=== PATIENT | female | born 1955 | race Caucasian/White ===

== ENCOUNTER 2023-09-29 13:30 | Emergency (ER) | payer MEDICARE, SELFPAY ==
[2023-09-29] VITALS (13 sets, daily range): BP systolic 146–176; BP diastolic 77–94; PULSE 67–82; RESP 15–20; TEMP 36.2–36.4; O2SAT 99–100
--- NOTE | ~2023-09-29 | CT_ITS ---
EXAMINATION: CT cervical spine wo con DATE: 09/29/2023 14:20 INDICATION: Head injury. TECHNIQUE: Computed tomography (CT) of the cervical spine was performed without intravenous contrast. Automated exposure control and iterative reconstruction technique were employed. The dose-length pro duct was 287.37 mGy-cm. COMPARISON: None FINDINGS: There is hypolordosis of cervical spine. There is 2 mm retrolisthesis of C5 on C6. Vertebra l body heights are normal. There is severely decreased disc height at C5-C6. The following disc level s are specifically discussed: C2-C3: There is no uncovertebral joint osteoarthritis. There is mild right and moderate left facet chel int osteoarthritis. There is no neural foraminal stenosis. There is no central canal stenosis. C3-C4: There is mild bilateral uncovertebral joint osteoarthritis. There is moderate right and severe left facet joint osteoarthritis. There is mild left neural foraminal stenosis. There is no central c anal stenosis. C4-C5: There is no uncovertebral joint osteoarthritis. There is severe right and moderate left facet joint osteoarthritis. There is no neural foraminal stenosis. There is no central canal stenosis. C5-C6: There is severe bilateral uncovertebral joint osteoarthritis. There is moderate bilateral face t joint osteoarthritis. There is moderate and mild left neural foraminal stenosis. There is mild cent ral canal stenosis. C6-C7: There is no uncovertebral joint osteoarthritis. There is mild bilateral facet joint osteoarthr itis. There is no neural foraminal stenosis. There is no central canal stenosis. C7-T1: There is no uncovertebral joint osteoarthritis. There is severe right and moderate left facet joint osteoarthritis. There is mild bilateral neural foraminal stenosis. There is no central canal st enosis. IMPRESSION: 1. No fracture. 2. Severe spondylosis at C5-C6 and mild spondylosis at other levels. Reviewed, dictated and finalized at location E.
--- NOTE | ~2023-09-29 | CT_ITS ---
EXAMINATION: CT brain wo con DATE: 09/29/2023 14:20 INDICATION: Head injury. Fall. TECHNIQUE: Computed tomography (CT) of the head was performed without intravenous contrast. The mA wa s adjusted according to patient size. Iterative reconstruction technique was employed. The dose-lengt h product was 605.33 mGy-cm. COMPARISON: None FINDINGS: There is no intracranial hemorrhage, acute infarction, or abnormal intracranial mass lesion . The ventricles are normal in size. There are likely changes of ocular lens replacement surgeries. T here is right posterior scalp soft tissue swelling. There is mucosal thickening in the paranasal sinu ses. The mastoid air cells are normal. IMPRESSION: 1. Normal brain. Reviewed, dictated and finalized at location E. IMPRESSION: 1. Normal brain.
--- NOTE | 2023-09-29 13:31 | ED.FALL ---
HPI - Fall General Chief Complaint: Fall Stated Complaint: fall Time Seen by Provider: 09/29/23 13:31 Source: patient and family Mode of arrival: ambulatory Limitations: no limitations History of Present Illness HPI Narrative: Patient is 68 years old white female came to the emergency room from home with her because of a fall. Patient tripped on her dog gate fell backward struck the back of her head on the floor, no loss of consciousness, complaining of swelling at the back of her head. She denies any other injuries. Patient is on aspirin, denied any type coagulant medications. Related Data Allergies Allergy/AdvReac Type Severity Reaction Status Date / Time No Known Allergies Allergy Verified 09/29/23 13:57 Review of Systems Review of Systems: All systems reviewed & are unremarkable except as noted in HPI and below Exam Narrative: General appearance: Well-developed, well-nourished Skin: Normal color Head: Occipital hematoma 5 x 5 cm, tender, no laceration Eyes: Clear conjunctiva ENT: Oropharynx normal, ears normal, nose normal Neck: Supple, nontender Chest and respiratory: Airway patent, no respiratory distress, no accessory muscle use Heart: Regular rate/rhythm Vascular: Normal peripheral pulses, normal capillary refill. 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, no gross motor deficit Course Vital Signs Vital signs: Vital Signs Temperature 36.2 C L 09/29/23 13:41 Pulse Rate 69 09/29/23 13:41 Respiratory Rate 15 09/29/23 13:41 Blood Pressure 171/94 H 09/29/23 13:41 Pulse Oximetry 100 09/29/23 13:41 Temperature 36.4 C 09/29/23 13:49 Pulse Rate 67 09/29/23 13:49 Respiratory Rate 20 09/29/23 13:49 Blood Pressure 176/77 H 09/29/23 13:49 Pulse Oximetry 100 09/29/23 13:49 Oxygen Delivery Room Air 09/29/23 13:49 MDM - Fall MDM Narrative Medical decision making narrative: Differential diagnosis contusion, hematoma, skull fracture, intracranial bleed CT head and CT cervical spine showed no acute abnormalities. Discharged on Tylenol. Differential Diagnosis Differential diagnosis: Likely other (As above) Imaging Data Radiologist's impression: Impressions Head CT 09/29/23 14:26 IMPRESSION: 1. Normal brain. Cervical Spine CT 09/29/23 14:27 IMPRESSION: 1. No fracture. 2. Severe spondylosis at C5-C6 and mild spondylosis at other levels. Critical Care Time Critical Care Time Critical Care Time: No Discharge Plan Discharge Clinical Impression: CHI (closed head injury), Concussion without loss of consciousness Patient Disposition: Home, Self-Care Condition: Stable Instructions: Head Injury (ED), Contusion in Adults (ED) Additional Instructions: Return if symptoms are worsening , call your family physician for appointment, take Tylenol as as needed for aches and pain, continue home medications. Follow-up/Referrals: PHYSICIAN NOT ON STAFF,NONSTAFF [Non-Staff] - Vincenzo Varela MD [Physician] - 10/03/23
[2023-09-29] MEDS: ACETAMINOPHEN 500 MG TABLET 1000 MG PO (14:02)
== END 2023-09-29 15:13 | disposition home or self-care (01) ==
PROVIDERS: Emergency Provider Emergency Medicine; PCP Family Medicine
DX: S06.0X0A Concussion without loss of consciousness, initial encounter (principal); M47.812 Spondylosis without myelopathy or radiculopathy, cervical region; W18.09XA Striking against other object with subsequent fall, initial encounter
CPT/HCPCS: 70450; 72125; 99284; A9270

== ENCOUNTER 2024-10-08 19:00 | Emergency (ER) | payer MEDICARE, SELFPAY ==
--- NOTE | ~2024-10-08 | XR_ITS ---
HISTORY: post reduction COMPARISON: 10/08/2024 approximately 2 hours earlier and additional imaging performed approximately 30 minutes earlier. TECHNIQUE: 2 views of the left wrist were performed. FINDINGS: Near anatomic alignment is redemonstrated identified on AP view with continued (but improved) dorsal displacement on crosstable lateral. IMPRESSION: As above. Reviewed, dictated and finalized at location A. IMPRESSION: As above.
--- NOTE | ~2024-10-08 | XR_ITS ---
HISTORY: L arm injury COMPARISON: None TECHNIQUE: 2 views of the left wrist were performed FINDINGS: Acute comminuted fracture of the distal radius is identified with significant radial and dorsal displ acement of the distal fracture fragments. IMPRESSION: As above. Reviewed, dictated and finalized at location A. IMPRESSION: As above.
--- NOTE | ~2024-10-08 | XR_ITS ---
HISTORY: post reduction COMPARISON: 10/08/2024 approximately 2 hours earlier TECHNIQUE: 2 views of the left wrist were performed. FINDINGS: Near anatomic alignment is identified on AP view with continued dorsal displacement on crosstable lat eral. IMPRESSION: As above. Reviewed, dictated and finalized at location A. IMPRESSION: As above.
[2024-10-08 19:01] VITALS: BP 156/91; PULSE 88; RESP 16; TEMP 36.6; O2SAT 100
--- NOTE | 2024-10-08 19:26 | ED_ITS ---
HPI - Fall General Chief Complaint: Fall <Jessica Coronado APRN - Last Filed: 10/08/24 23:56> Stated Complaint: fall-broken arm <Jessica Coronado APRN - Last Filed: 10/08/24 23:56> Time Seen by Provider: 10/08/24 19:15 <Jessica Coronado APRN - Last Filed: 10/08/24 23:56> History of Present Illness HPI Narrative: Patient is a 69-year-old female who presents to the ER with left forearm injury. She reports she was walking on her wood floor with socks on, slipped and fell. Patient endorses significant pain in her left forearm. She endorses full feeling in each of her digits, but is unable to move the much due to pain. Patient reports she has a history of diabetes, but denies any other medical history relevant to this ER visit. She denies any decreased range of motion in her elbow, shoulder, decreased sensation, recent fevers. <Jessica Coronado APRN - Last Filed: 10/08/24 23:56> Related Data Allergies/Adverse Reactions: Allergies Allergy/AdvReac Type Severity Reaction Status Date / Time No Known Allergies Allergy Verified 09/29/23 13:57 <Jessica Coronado APRN - Last Filed: 10/08/24 23:56> Review of Systems Review of Systems: All systems reviewed & are unremarkable except as noted in HPI and below <Jessica Coronado APRN - Last Filed: 10/08/24 23:56> Exam Narrative: GENERAL: Well appearing, well-nourished, non-toxic, in no acute distress. HEAD: Normocephalic, atraumatic. NECK: Supple. No adenopathy, no masses. RESPIRATORY: Airway patent, respirations nonlabored. Clear to auscultation bilaterally, no rales, rhonchi, wheezing. CARDIOVASCULAR: Regular rate and rhythm without murmurs, rubs, or gallops. Peripheral pulses 2+ and equal bilaterally. ABDOMINAL: Soft, nontender, nondistended, no hepatosplenomegaly. Normoactive BS. MUSCULOSKELETAL: Moves all extremities. Strength/ROM intact without gross deformities in all extremities except for L forearm, which is visibly deformed. Pt is able to wiggle each of her fingers but will not attempt any other ROM d/t pain. SKIN: Warm, dry, normal color. No rashes. NEURO: A&O X3. Speech clear. Cranial nerves II-XII intact. No ataxic movements. PSYCHIATRIC: Appropriate mood and affect. Normal interaction. Post Reduction: CWMS intact L hand, pt denies any numbness or tingling in her fingers. She can move all fingers. 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 I had independent [id number] time with the patient and performed my own independent evaluation and assessment. I independently performed the reduction attempts at bedside and splint of the fracture. Orthopedics was consulted and recommended surgical evaluation outpatient with pain control regimen on discharge. Patient was comfortable with this plan. She remains neurovascularly intact upon reduction and has good distal neuro vasculature at this time. Patient given return precautions and she verbalized understanding the instructions for follow-up. Patient safely discharge. <Tee Armijo MD - Last Filed: 10/08/24 23:59> Vital Signs Vital signs: Vital Signs Temperature 36.6 C 10/08/24 19:01 Pulse Rate 88 10/08/24 19:01 Respiratory Rate 16 10/08/24 19:01 Blood Pressure 156/91 H 10/08/24 19:01 Pulse Oximetry 100 10/08/24 19:01 Temperature 36.6 C 10/08/24 19:01 Pulse Rate 70 10/08/24 23:44 Respiratory Rate 18 10/08/24 23:44 Blood Pressure 143/74 H 10/08/24 23:44 Pulse Oximetry 95 10/08/24 23:44 <Jessica Coronado APRN - Last Filed: 10/08/24 23:56> Vital Signs Temperature 36.6 C 10/08/24 19:01 Pulse Rate 88 10/08/24 19:01 Respiratory Rate 16 10/08/24 19:01 Blood Pressure 156/91 H 10/08/24 19:01 Pulse Oximetry 100 10/08/24 19:01 Temperature 36.6 C 10/08/24 19:01 Pulse Rate 70 10/08/24 23:44 Respiratory Rate 18 10/08/24 23:44 Blood Pressure 143/74 H 10/08/24 23:44 Pulse Oximetry 95 10/08/24 23:44 <Tee Armijo MD - Last Filed: 10/08/24 23:59> Procedures Orthopedic Fracture Reduction Fracture #1: Fracture Reduction date: 10/08/24 <Tee Armijo MD - Last Filed: 10/08/24 23:59> Fracture Reduction time: 22:00 <Tee Armijo MD - Last Filed: 10/08/24 23:59> Time Out Performed: Yes <Tee Armijo MD - Last Filed: 10/08/24 23:59> Side: left <Tee Armijo MD - Last Filed: 10/08/24 23:59> Fracture Reduction Location: radius <Tee Armijo MD - Last Filed: 10/08/24 23:59> Analgesia: hematoma block <Tee Armijo MD - Last Filed: 10/08/24 23:59> Pre-Procedure Neuro Vascular Exam: normal <Tee Armijo MD - Last Filed: 10/08/24 23:59> Technique: direct manipulation, traction/counter-traction and finger traps <Tee Armijo MD - Last Filed: 10/08/24 23:59> Post Reduction X-rays Demonstrate: acceptable reduction <Tee Armijo MD - Last Filed: 10/08/24 23:59> Post-reduction neuro exam: intact <Tee Armijo MD - Last Filed: 10/08/24 23:59> Post-reduction vascular exam: intact <Tee Armijo MD - Last Filed: 10/08/24 23:59> Splint Applied: Yes <Tee Armijo MD - Last Filed: 10/08/24 23:59> Patient Tolerated Procedure: well and no complications <Tee Armijo MD - Last Filed: 10/08/24 23:59> Orthopedic Splinting/Casting Injury #1: Splinting/Casting Date: 10/08/24 <Tee Armijo MD - Last Filed: 10/08/24 23:59> Splinting/Casting Time: 22:15 <Tee Armijo MD - Last Filed: 10/08/24 23:59> Side: left <Tee Armijo MD - Last Filed: 10/08/24 23:59> Upper Extremity Injury Location: wrist <Tee Armijo MD - Last Filed: 10/08/24 23:59> Upper Extremity Immobilizer: sugar tong splint <Tee Armijo MD - Last Filed: 10/08/24 23:59> Splint: customized in ED <Tee Armijo MD - Last Filed: 10/08/24 23:59> Pre-Procedure Neuro Vascular Exam: normal <Tee Armijo MD - Last Filed: 10/08/24 23:59> Post-Procedure Neuro Vascular Exam: normal <Tee Armijo MD - Last Filed: 10/08/24 23:59> MDM - Fall MDM Narrative Medical decision making narrative: Patient is a 69-year-old female who presents to the ER with left forearm injury. She reports she was walking on her wood floor with socks on, slipped and fell. Patient endorses significant pain in her left forearm. She endorses full feeling in each of her digits, but is unable to move the much due to pain. Patient reports she has a history of diabetes, but denies any other medical history relevant to this ER visit. She denies any decreased range of motion in her elbow, shoulder, decreased sensation, recent fevers. Labs Ordered: None necessary Imaging Ordered: Left wrist x-ray Medications Ordered: Dilaudid 1 mg, Dilaudid 0.5 mg, bupivacaine 10 mils infiltrate Results: PT's L wrist x-ray indicates Acute comminuted fracture of the distal radius is identified with significant radial and dorsal displacement of the distal fracture fragments. Diagnosis: Left wrist fracture Consults: 2229- spoke with orthopedics, Dr. Cisneros, who agreed to consult on patient. He advised patient a sugar-tong splint placed to stabilize patient's wrist. Dr. Cisneros advise patient's wrist be pushed slightly forward when the splint is placed in order to aid in healing appropriately. He advised if patient starts to experience burning in her fingertips she needs to return to the ER. This was shared with pt and her family. Dr. Cisneros advised pt should be discharged with [place] and follow-up with orthopedics as an outpatient. He reports pt will need surgery, which was also shared with pt. Patient Education/Shared MDM: Results of imaging shared with patient. She endorses improvement of pain following medication administration. Patient strongly advised to follow-up with orthopedics and should call them tomorrow to schedule a follow-up appointment. She will be discharged home with a prescription for [place]. Strict return precautions provided. Patient verbalized understanding and is in agreement with plan. Vital signs stable at time of discharge. All questions answered. <Jessica Coronado APRN - Last Filed: 10/08/24 23:56> Differential Diagnosis Differential diagnosis: Likely fracture of wrist, compression fracture and other (L wrist sprain, L wrist strain, L wrist dislocation) <Jessica Coronado APRN - Last Filed: 10/08/24 23:56> Imaging Data Attestation: I personally reviewed and interpreted this imaging study as follows: <Jessica Coronado APRN - Last Filed: 10/08/24 23:56> Radiologist's impression: Impressions Wrist X-Ray 10/08/24 19:58 IMPRESSION: As above. Wrist X-Ray 10/08/24 22:08 IMPRESSION: As above. Wrist X-Ray 10/08/24 22:14 IMPRESSION: As above. <Jessica Coronado APRN - Last Filed: 10/08/24 23:56> Discharge Plan Discharge Clinical Impression: Fracture of distal end of radius with dorsal angulation <Jessica Coronado APRN - Last Filed: 10/08/24 23:56> Patient Disposition: Home <Jessica Coronado APRN - Last Filed: 10/08/24 23:56> Condition: Stable <Jessica Coronado APRN - Last Filed: 10/08/24 23:56> Instructions: Antibiotic Form, Wrist Fracture in Adults (ED), Splint Care (ED) <Jessica Coronado APRN - Last Filed: 10/08/24 23:56> Additional Instructions: Please return to the ER with any worsening symptoms. If your fingertips start tingling or burning please return to the ER. Follow-up with orthopedics as soon as possible. Take all medications as prescribed, including regularly scheduled medications. <Jessica Coronado APRN - Last Filed: 10/08/24 23:56> Patient Language: [place] <Jessica Coronado APRN - Last Filed: 10/08/24 23:56> Prescriptions: New hydrocodone-acetaminophen 5-325 mg tablet 1 tablet PO Q6H PRN (Reason: pain) Qty: 14 0RF ondansetron 4 mg tablet,disintegrating 4 mg PO Q8H Qty: 14 0RF <Jessica Coronado APRN - Last Filed: 10/08/24 23:56> Follow-up/Referrals: Gagen,Carolann Sharma MD [Primary Care Provider] - Lorenzo Cisneros MD [Physician] - (orthopedics ) <Jessica Coronado APRN - Last Filed: 10/08/24 23:56> Time of Disposition: 23:59 <Jessica Coronado APRN - Last Filed: 10/08/24 23:56> 23:59 <Tee Armijo MD - Last Filed: 10/08/24 23:59>
--- OUTSIDE RECORDS SUMMARY | 2024-10-08 19:28 | XMS_ITS | Clinical Summary ---
Author Organization [facility] Address [address] [place] [address] Care Team Providers Care Insurance Producer Name Role Phone Carolann Fournier MD Primary Care Provider + Allergies No known active allergies Medications atorvastatin (LIPITOR) 10 MG tablet Take 1 tablet (10 mg total) by mouth daily. Active glipiZIDE (GLUCOTROL) 10 MG tablet GlipiZIDE 10 MG Oral [id number] 2017Active Active ACCU-CHEK JACQUELINE PLUS test strip CHECK BLOOD SUGARS ONCE PER DAY 2 Active RYBELSUS 3 MG Tab daily. 3 Active Immunizations Immunization Administration Dates Next Due Fluzone High Dose - >Age 65 (Prefilled Syringe) 03/14/2020,03/13/2019 Family History Medical History Relation Comments Breast Cancer Neg Hx Social History Tobacco Use Types Packs/Day Years Used Date Smoking Tobacco: Never Passive Smoke Exposure: Never Smokeless Tobacco: Never Tobacco Cessation:Counseling Given: Not Answered Alcohol Use Standard Drinks/Week Comments Yes 0 (1 standard drink = 0.6 oz pur e alcohol) rare Comments No Sex and Gender Information Value Date Recorded Sex Assigned at Not on file Legal Sex Female 5:48 PM CDT Gender Identity Not on file Sexual Orientation Not on file Last Filed Vital Signs Vital Sign Reading Time Taken Comments Blood Pressure 110/68 04/10/2017 4:09 PM JOINT CUTTER MACHINE Pulse 83 04/10/2017 4:09 PM JOINT CUTTER MACHINE Temperature - - Respiratory Rate - - Oxygen Saturation - - Inhaled Oxygen Concentration - - Weight 73 kg (161 lb) 02/06/2024 11:30 AM CDT Height 160 cm (5' 3 ) 02/06/2024 11:30 AM CDT Body Mass Index 28.52 02/06/2024 11:30 AM CDT Plan of Treatment Health Maintenance Due Date Last Done Comments Colorectal Cancer Screening Colonoscopy (10 Years) 1953 Kidney Health Evaluation 1953 Diabetes: Retinopathy Eye Exam 1971 Hepatitis C 1971 DTaP, Tdap and Td Vaccines (1 - Tdap) 1972 Pneumococcal Vaccine: 50+ Years (1 of 2 - PCV) 1972 Zoster Vaccines (1 of 2) 2003 Annual Medicare Wellness Visit 2018 Mammogram Screening 05/12/2022 05/12/2020, 9 COVID-19 Vaccine ( - season) 2024 Hemoglobin A1C 04/30/2024 01/29/2024, 03/0 11/2023, 11/21/2022, Additional history exists Lipid Panel 08/06/2024 08/07/2023, 0606/2022, 09/21/2021, Additional history exists RSV Immunization or 60+ Years (1 - 1-dose 75+ series) 2028 Dexa Scan (General) Completed 04/09/2019 Meningococcal B Vaccine Aged Out No l onger eligible based on patient's age to complete this topic Meningococcal Vaccine Aged Out No brianna jese eligible based on patient's age to complete this topic RSV Immunizations Under 20 Months Aged Out No longer eligible based on patient's age to complete this topic Procedures Procedure Name Priority Date/Time Associated Diagnosis Comments HEMOGLOBIN, GLYCOSYLATED Routine 01/29/2024 11:31 AM CDT Hyperlipemia Trigger thumb of left hand Inadequately controlled diabetes mellitus Avitaminosis D Fatigue LIPID PANEL Routine 08/07/2023 2:34 PM JOINT CUTTER MACHINE Mixed hyperlipidemia Type II diabetes mellitus with hyperosmolarity, uncontrolled MG SCREENING W BYRON LORNA DIGI Routine 05/12/2020 3:03 PM JOINT CUTTER MACHINE Visit for screening mammogram BONE DENSITY/DEXA Routine 04/09/2019 2:3 2 PM JOINT CUTTER MACHINE Postmenopausal COLONOSCOPY Routine JOINT CUTTER MACHINE from Last 3 Months or Most Recently Relevant to Health Maintenance Results * (ABNORMAL) HEMOGLOBIN, GLYCOSYLATED (01/29/2024 11:31 AM CDT) HGB A1C 9.6(H) <5.7 % 01/29/2024 6:36 PM CDT [facility] Comment: ADA GUIDELINES 2010 5.7 TO 6.4% INCREASED RISK OF DIABETES > OR = 6.5% CONSISTENT WITH DIABETES TESTING PERFORMED AT [facility] [address] [place] [address] ESTIMATED AVG GLUCOSE 229 mg/dL 01/29/2024 6:36 PM CDT [facility] 01/29/2024 11:3 1 AM CDT Coretta Crowley [facility] [facility] Final Re sult [facility] [address] [place] [address], * LIPID PANEL (08/07/2023 2:34 PM JOINT CUTTER MACHINE) CHOLESTEROL 181 <200 MG/DL 08/07/2023 3:27 PM JOINT CUTTER MACHINE [facility] TRIGLYCERIDES 87 <150 MG/DL 08/07/2023 3:27 PM JOINT CUTTER MACHINE [facility] HDL 69 >40.0 MG/DL 08/07/2023 3:27 PM [facility] LDL (CALCULATED) 95 <100 MG/DL 08/07/19 3:27 PM JOINT CUTTER MACHINE [facility] NON HDL CHOLESTEROL 112 <130 MG/DL 08/06 3:27 PM JOINT CUTTER MACHINE [facility] Comment: NOTE: WHEN THE TRIGLYCERIDES ARE >200 mg/dL, NON HDL C IS A SECONDARY TARGET OF THERAPY, WITH A GOAL 30 mg/dL HIGHER THAN THE IDENTIFIED LDL C GOAL. CHOL/HDL RATIO 2.6 0.0 - 4.5 08/07/2023 3:27 PM JOINT CUTTER MACHINE [facility] VLDL CALCULATION 17 5 - 55 MG/DL 08/07/2023 3:27 PM JOINT CUTTER MACHINE [facility] LIPID INTERPRETATION 08/07/2023 3:27 PM JOINT CUTTER MACHINE [facility] Comment: NIH CONCENSUS REPORT RECOMMENDATIONS: ADULT CHILD LOW RISK: CHOLESTEROL <200 <170 TRIGLYCERIDE <150 --- HDL >=60 --- LDL <100 <110 BORDERLINE: CHOLESTEROL 200-239 170-199 TRIGLYCERIDE 150-199 --- HDL 40-59 --- LDL 100-159 110-129 HIGH RISK: CHOLESTEROL >=240 >=200 TRIGLYCERIDE >=200 --- HDL <40 --- LDL >=160 >=130 08/07/2023 2:34 PM JOINT CUTTER MACHINE us Coretta Crowley [employer] [facility] Final Re sult [facility] [address] [place] [address], * MG SCREENING W BYRON LORNA DIGI (05/12/2020 3:03 PM JOINT CUTTER MACHINE) Anatomical Region Laterality Modality Breast Bilateral Mammography 05/12/2020 4:33 PM JOINT CUTTER MACHINE Narrative 05/12/2020 4:33 PM JOINT CUTTER MACHINE EXAMINATION: MG SCREENING W BYRON LORNA DIGI WITH TOMOSYNTHESIS AND COMPUTER-AIDED DETECTION (CAD) DATE: 05/12/2020 2:45 PM COMPARISON STUDIES: 04/09/2019, 04/10/2018, 03/22/2017. CLINICAL HISTORY: Visit for screening mammogram . FINDINGS: Bilateral CC, MLO, 2-D and 3-D acquisitions. Scattered residual fibroglandular parenchyma . Similar in appearance and distribution to the previous exams. No evidence of dominant mass, architectural distortion, skin thickening, nipple retraction or suspicious clusters of microcalcifications. Benign calcifications redemonstrated. CONCLUSION: 1. BI-RADS Category 2 - benign findings. Annual screening mammography recommended. 2. TISSUE TYPE: Category B - There are areas of scattered fibroglandular density. MQSA BI-RADS Categories: Category 0 - needs additional imaging evaluation. Category 1 - negative. Category 2 - benign findings. Category 3 - probably benign findings, but short interval follow-up is recommended. Category 4 - suspicious abnormality and biopsy should be considered though the lesion may well be benign. Category 5 - highly suggestive of malignancy and appropriate action should be taken. A) A negative report should not delay a biopsy if a dominant or clinically suspicious mass is present. B) Adenosis and dense breasts may obscure an underlying neoplasm. C) Study interpreted with computer aided detection. Voice recognition software utilized. Interpreted By: Guilherme Albright, 05/12/2020 4:33 PM us Yasmin Tierney MD MAMMO Final Result * BONE DENSITY/DEXA (04/09/2019 2:32 PM JOINT CUTTER MACHINE) Anatomical Region Laterality Modality Bone Bone Density 04/09/2019 3:21 PM JOINT CUTTER MACHINE Impressions 04/09/2019 3:22 PM JOINT CUTTER MACHINE IMPRESSION: WHO Classification: normal. FRAX Score: No score calculated as all T score values are within normal limits. Interpreted By: Alexander Hernández, 04/09/2019 3:21 PM Narrative 04/09/2019 3:22 PM JOINT CUTTER MACHINE Examination: Bone Density Axial Exam Date/Time: 04/09/2019 2:32 PM Reason For Exam: Postmenopausal Comparison: None Findings: DEXA bone densitometry The bone mineral density (BMD) was determined by dual-energy x-ray absorptiometry, the results are as follows: AP Lumbar Spine L1 through L4 BMD Patient (GM/SQCM): 1.030 T-Score (Standard deviations from young adult peak bone density): -0.2 Left femoral neck: BMD Patient (GM/SQCM): 0.820 T-Score (Standard deviations from young adult peak bone density): -0.3 Total left femur: BMD Patient (GM/SQCM): 0.915 T-Score (Standard deviations from young adult peak bone density): -0.2 Procedure Note Alexander Hernández MD - 04/09/2019 Examination: Bone Density Axial Exam Date/Time: 04/09/2019 2:32 PM Reason For Exam: Postmenopausal Comparison: None Findings: DEXA bone densitometry The bone mineral density (BMD) was determined by dual-energy x-ray absorptiometry, the results are as follows: AP Lumbar Spine L1 through L4 BMD Patient (GM/SQCM): 1.030 T-Score (Standard deviations from young adult peakbone density): -0.2 Left femoral neck: BMD Patient (GM/SQCM): 0.820 T-Score (Standard deviations from young adult peakbone density): -0.3 Total left femur: BMD Patient (GM/SQCM): 0.915 T-Score (Standard deviations from young adult peakbone density): -0.2 IMPRESSION: WHO Classification: normal. FRAX Score: No score calculated as all T score values are within normal limits. Interpreted By: Alexander Hernández, 04/09/2019 3:21 PM us Nely Parsons MD DEXA Final Result * Colonoscopy ( JOINT CUTTER MACHINE) Narrative [employer] TO EPIC CONVERSION - JOINT CUTTER MACHINE Documented hx of procedure Procedure Note Cindi Falcon MD - 04/06/2018 Documented hx of procedure us Generic Conversion Md FALCON GI PROCEDURE ORDERABLES Final Result [employer] TO EPIC CONVERSION from Last 3 Months or Most Recently Relevant to Health Maintenance Insurance [employer] [place] [address] [place] [address] Care Teams Insurance Producer Relationship Specialty Start Date End Date Carolann Fournier MD [address] [place] [address] PCP - General FAMILY PRACTICE 03/13/19
--- OUTSIDE RECORDS SUMMARY | 2024-10-08 19:28 | XMS_ITS | Encounter Summary ---
Author Organization [facility] Address [facility] [place] [address] Care Team Providers Care Instruments Sales Representative Name Role Phone Carolann Fournier MD Primary Care Provider + Encounter Details Date Type Department Care Team (Late st Contact Info) Description 08/20/2018 Abstract [facility] CONVERSION [address] [place] [address] , Generic Conversion, Social History Tobacco Use Types Packs/Day Years Used Date Smoking Tobacco: Never Assessed Comments Unknown Sex and Gender Information Value Date Recorded Sex Assigned at Not on file Legal Sex Female 5:48 PM CDT Gender Identity Not on file Sexual Orientation Not on file documented as of this encounter Plan of Treatment Not on file documented as of this encounter Visit Diagnoses Not on filedocumented in this encounter Care Teams Instruments Sales Representative Relationship Specialty Start Date End Date Carolann Fournier MD [address] [place] [address] PCP - General FAMILY PRACTICE 03/13/19 documented as of this encounter
--- OUTSIDE RECORDS SUMMARY | 2024-10-08 19:28 | XMS_ITS | CONTINUITY OF CARE DOCUMENT ---
Author Name matilda grey Address Unknown Organization [facility] Office Address [address] [facility] [address] [place] [address] Phone [phone] Care Team Providers Care Dredge Master Name Role Phone matilda grey Unavailable Unavailable
[2024-10-08] MEDS: HYDROmorphone HCL INJ (*CRX) 2 MG/ML VIAL 0.5 MG IV PUSH (19:41)
--- NOTE | 2024-10-08 20:10 | PC.NURSE ---
Pt c/o having cold fingers. Wrist/hand on ice d/t likely fx. [place] provided for pt and repositioned. Ensured pt had call light.
[2024-10-08] MEDS: HYDROmorphone HCL INJ (*CRX) 2 MG/ML VIAL 1 MG IV PUSH (20:59)
--- NOTE | 2024-10-08 23:43 | PC.NURSE ---
Assumed care of patient after receiving bedside report from JAELYN Nath. @ [phone]
[2024-10-08 23:44] VITALS: BP 143/74; PULSE 70; RESP 18; O2SAT 95
--- NOTE | 2024-10-08 23:45 | PC.NURSE ---
splint applied prior to this RN taking over patient care.
[2024-10-08] MEDS: ONDANSETRON INJ 4 MG/2 ML VIAL IV PUSH (23:58)
== END 2024-10-09 | disposition home or self-care (01) ==
PROVIDERS: Emergency Provider Registered Nurse; PCP Family Medicine
DX: S52.592A Other fractures of lower end of left radius, initial encounter for closed fracture (principal); E11.9 Type 2 diabetes mellitus without complications; W01.0XXA Fall on same level from slipping, tripping and stumbling without subsequent striking against object, initial encounter
CPT/HCPCS: 25600; 73100; 96374; 96375; 99285; A9270; J1171; J2405

== ENCOUNTER 2024-10-15 00:22 | Day surgery (SDC) | payer MEDICARE, SELFPAY ==
[2024-10-13 13:36] VITALS: BMI 28.3
--- NOTE | 2024-10-13 13:57 | PC.NURSE ---
Report to the Outpatient Waiting Room, entrance under the green pavilion located off [facility], at time __8:00AM on date ___10/15/24____. Planned Procedure Time: ____10:00AM__. Time changes happen often and if your time is changed the preop area will call you the afternoon before. - You and your visitor will be asked to self-screen and do not enter if you have any COVID symptoms. Please call surgeon if you need to reschedule. - A mask is optional within the hospital at this time. Patients may have clear liquids (water, carbonated beverages, clear teas, apple juice) until 3 hours prior to surgery (7:00AM) with a maximum of 20 ounces. - No food from midnight until time of surgery and no smoking, or chewing tobacco (or any form of nicotine). No chewing gum, candy or mints. Take only the following medications with a SIP of water on the morning of surgery: ___HYDROCODONE AND ONDANSETRON NEEDED DO NOT STOP ANY OF YOUR OTHER PRESCRIPTION MEDICATIONS PRIOR TO SURGERY EXCEPT THE FOLLOWING Hold all vitamins and supplements for 3 days per anesthesiologist. Medications to discontinue per physician NONE Date to take last dose Please no make-up, nail slovak, hairspray, perfume, deodorant, or body powder the day of surgery. No jewelry (including any body piercings) or valuables the day of surgery, leave them at home. Please take a shower or bath the night before, or the morning of, surgery with an antibacterial soap. Wear comfortable, loose fitting clothing. - Jewelry must be removed prior to entering the operating room. Rings and piercings that are not removed may be cut off. - The hospital will not accept responsibility for valuables. - Please leave all valuables, including medications, at home the day of surgery. If you are going home after surgery, a licensed cdl dedicated truck driver must drive you home. - NO public transportation without another adult if you receive anesthesia. - We recommend that an adult stay with you for 24 hours following discharge. - We also recommend that you do not drive, make important decision, drink alcoholic beverages, or take any drugs that were not prescribed by your health care provider for at least 24 hours after your discharge time. Follow any additional instructions given to you from your surgeon. Telephone instructions given to ___PATIENT and asked if any additional questions and then verbalized understanding. Patient advised to call surgeon office or pre surgery nurse liaison [phone] if any additional questions.
[2024-10-15] VITALS (14 sets, daily range): BP systolic 125–150; BP diastolic 52–93; PULSE 67–92; RESP 16; TEMP 36.6; O2SAT 90–98
--- NOTE | ~2024-10-15 | XR_ITS ---
EXAMINATION: XR surgery orthopedic DATE: 10/15/2024 12:15 INDICATION: ORIF left wrist fracture TECHNIQUE: 2 fluoroscopic images of the left wrist were obtained during procedure performed by Dr. Brian wetzel. Radiologist was not present for the imaging or procedure. The amount of fluoroscopy time used during this procedure was 1.2 minutes. Total DAP was 0.3057 Gycm^2. COMPARISON: None. FINDINGS: Interval open reduction and volar T plate and screw fixation of the previous noted comminuted intra-a rticular fracture of the distal left radius. There is additional percutaneous fixation wire extending from the distal to the radial styloid process across the fracture and the ulnar sided cortex of the distal radial diaphysis. There is 12 degrees volar tilt of the distal articular surface on the latera l projection. There is up to 1 cm residual separation of the fracture margins along the radial and ul antonieta sides of the main oblique fracture plane on the dorsal palmar projections. There are few small leos rgical clips projecting over the soft tissues volar to the distal margin of the volar plate. Mildly d isplaced and of the ulnar styloid avulsion fracture without internal fixation. There appears be mild widening of the scapholunate interval suggesting possible scapholunate ligament injury. IMPRESSION: 1. Fluoroscopy utilized during volar T plate and screw fixation of a comminuted intra-articular fract ure of the distal left radius. 2. Mild residual displacement of an ulnar styloid tip avulsion fracture which remains without fixatio n. 3. Slight widening of the scapholunate interval suggesting possible scapholunate ligament tear. Reviewed, dictated and finalized at location A. IMPRESSION: 1. Fluoroscopy utilized during volar T plate and screw fixation of a comminuted intra-articular fracture of the distal left radius. 2. Mild residual displacement of an ulnar styloid tip avulsion fracture which r emains without fixation. 3. Slight widening of the scapholunate interval suggesting possible scapholunat e ligament tear.
--- OUTSIDE RECORDS SUMMARY | 2024-10-15 00:24 | XMS_ITS | Encounter Summary ---
Author Organization [facility] Address [facility] [place] [address] Care Team Providers Care Human Capital Consultant Name Role Phone Carolann Fournier MD Primary Care Provider + Encounter Details Date Type Department Care Team (Late st Contact Info) Description 10/12/[address] [facility] [address] [place], [place] [id number] Lorenzo Cisneros MD [address] [id number] Social History Tobacco Use Types Packs/Day Years Used Date Smoking Tobacco: Never Passive Smoke Exposure: Never Smokeless Tobacco: Never Alcohol Use Standard Drinks/Week Comments Yes 0 [...] on file documented as of this encounter Results * (ABNORMAL) HEMOGLOBIN, GLYCOSYLATED (10/12/2024 3:32 PM CDT) HGB A1C 10.2(H) <5.7 % 10/12/2024 5:48 PM CDT [facility] Comment: INCREASED RISK OF DIABETES <5.7% NON-DIABETES 5.7-6.4% INCREASED RISK FOR FUTURE DIABETES > OR = 6.5 CONSISTENT WITH DIABETES STANDARDS OF MEDICAL CARE IN DIABETES-2010 DIABETES CARE, 33(SUPP 1): S1-S61,2009 ESTIMATED AVG GLUCOSE 246 mg/dL 10/12/2024 5:48 PM CDT [facility] 10/12/2024 3:32 PM CDT Lorenzo Cisneros MD LABORATORY Final Result Performing Organization Address City/[facility]/ZIP Co de Phone Number [facility] [address] [place] [address], [place] [phone] * (ABNORMAL) C-REACTIVE PROTEIN (10/12/2024 3:32 PM CDT) C-REACTIVE PROTEIN 1.42(H) <0.29 mg/dL 10/12/2024 8:03 PM CDT [facility] 10/12/2024 3:32 PM CDT Lorenzo Cisneros MD LABORATORY Final Result Performing Organization Address City/[facility]/ZIP Co de Phone Number [facility] [address] [place] [address], [place] [phone] * (ABNORMAL) COMPREHENSIVE METABOLIC PANEL (10/12/2024 3:32 PM CDT) GLUCOSE 260(H) 70 - 99 MG/DL 10/12/2024 4:35 PM CDT [facility] BUN 22(H) 7 - 18 MG/DL 10/12/2024 4:35 PM CDT [facility] CREATININE S/P/B 0.97 0.55 - 1.02 MG/DL 10/12/2024 4:35 PM CDT [facility] SODIUM S/P/B 135(L) 136 - 145 MMOL/L 10/12/2024 4:35 PM CDT [facility] POTASSIUM S/P/B 4.2 3.5 - 5.1 MMOL/L 10/12/2024 4:35 PM [facility] CHLORIDE S/P/B 100 100 - 108 MMOL/L 10/12/2024 4:35 PM [facility] CO2 29.3 21 - 32 MMOL/L 10/12/2024 4:35 PM [facility] CALCIUM S/P/B 9.6 8.5 - 10.1 MG/DL 10/12/2024 4:35 PM [facility] BILIRUBIN TOTAL S/P/B 0.4 0.2 - 1.2 MG/DL 10/12/2024 4:35 PM [facility] TOTAL PROTEIN S/P/B 7.8 6.4 - 8.2 G/DL 10/12/2024 4:35 PM [facility] ALBUMIN S/P/B 4.0 3.4 - 5.0 G/DL 10/12/2024 4:35 PM [facility] AST 18 15 - 37 U/L 10/12/2024 4:35 PM [facility] ALT 16 14 - 55 U/L 10/12/2024 4:35 PM [facility] ALKALINE PHOSPHATASE S/P/B 104 50 - 136 U/L 10/12/2024 4:35 PM [facility] ANION GAP 5.7 5 - 15 MMOL/L 10/12/2024 4:35 PM [facility] BUN CREATININE RATIO 22.7 6 - 26 10/12/2024 4:35 PM [facility] A/G RATIO 1.1 1.0 - 2.0 RATIO 10/12/2024 4:35 PM [facility] GFR ESTIMATE 62(L) >90 ML/MIN/1.7 3 M2 10/12/2024 4:35 PM CDT [facility] Comment: NOTE: eGFR is not calculated for patients <18 years of age. This is an estimated GFR calculation using the new CKD EPI creatinine equation without race and so does not require a correction factor for race. This estimated GFR should not be used for calculating drug doses. 10/12/2024 3:32 PM CDT us Lorenzo Cisneros MD LABORATORY Final Result [facility] [address] [place] [address], * (ABNORMAL) CBC, AUTO, NO DIFF (10/12/2024 3:32 PM CDT) WBC 7.92 4.4 - 11.0 x10'3/uL 10/12/2024 3:55 PM CDT [facility] RBC 4.11(L) 4.50 - 5.10 x10'6/uL 10/12/2024 3:55 PM CDT [facility] HGB 12.3 12.3 - 15.3 G/DL 10/12/2024 3:55 PM CDT [facility] HCT 37.6 35.9 - 44.6 % 10/12/2024 3:55 PM CDT [facility] MCV 91.5 80.0 - 96.0 FL 10/12/2024 3:55 PM CDT [facility] MCH 29.9 25.3 - 30.9 PG 10/12/2024 3:55 PM CDT [facility] MCHC 32.7 31.0 - 34.1 G/DL 10/12/2024 3:55 PM CDT [facility] RDW 12.2(L) 12.4 - 15.1 % 10/12/2024 3:55 PM CDT [facility] PLT 215 151 - 353 x10'3/uL 10/12/2024 3:55 PM CDT [facility] MPV 11.4 9.6 - 12.0 FL 10/12/2024 3:55 PM CDT [facility] 10/12/2024 3:32 PM CDT us Lorenzo Cisneros MD LABORATORY Final Result [facility] [address] [place] [address], documented in this encounter Visit Diagnoses Diagnosis Pre-operative laboratory examination- Primary Pre-procedural laboratory examination documented in this encounter Care Teams Human Capital Consultant Relationship Specialty Start Date End Date Carolann Fournier MD [address] [place] [address] PCP - General FAMILY PRACTICE 03/13/19 documented as of this encounter
--- OUTSIDE RECORDS SUMMARY | 2024-10-15 00:24 | XMS_ITS | CONTINUITY OF CARE DOCUMENT ---
Author Name matilda grey Address Unknown Organization [facility] Office Address [address] [facility] [address] [place] [address] Phone [phone] Care Team Providers Care Steel Floor Pan Placing Supervisor Name Role Phone matilda grey Unavailable Unavailable
--- OUTSIDE RECORDS SUMMARY | 2024-10-15 00:24 | XMS_ITS | Encounter Summary ---
Author Organization [facility] Address [facility] [place] [address] Care Team Providers Care Workforce Development Program Director Name Role Phone Carolann Fournier MD Primary Care Provider + Encounter Details Date Type Department Care Team (Late st Contact Info) Description 08/20/2018 Abstract [facility] CONVERSION [address] [place] [address] , Generic Conversion, Social History Tobacco Use [...] on filedocumented in this encounter Care Teams Workforce Development Program Director Relationship Specialty Start Date End Date Carolann Fournier MD [address] [place] [address] PCP - General FAMILY PRACTICE 03/13/19 documented as of this encounter
--- OUTSIDE RECORDS SUMMARY | 2024-10-15 00:24 | XMS_ITS | Clinical Summary ---
Author Organization [facility] Address [address] [place] [address] Care Team Providers Care Supervisor Electronics Assembly Name Role Phone Carolann Fournier MD Primary Care Provider + Allergies No known active allergies Medications atorvastatin (LIPITOR) 10 MG tablet Take 1 tablet (10 mg total) by mouth daily. Active glipiZIDE (GLUCOTROL) 10 MG tablet GlipiZIDE 10 MG Oral [id number] 2017Active Active ACCU-CHEK JACQUELINE PLUS test strip CHECK BLOOD SUGARS ONCE PER DAY 2 Active RYBELSUS 3 MG Tab daily. 3 Active Encounters Date Type Department Care Team Description 10/12/2024 3:26 PM CDT - 10/12/2024 11:59 PM CDT Hospital Encounter [facility] Cardiop[facility] Services [address] [place] [address] Lorenzo Cisneros MD Arrived Discharge Disposition: Home or Self Care (Routine Discharge) 10/12/2024 3:23 PM CDT - 10/12/2024 3:25 PM CDT Hospital Encounter [facility] [address] [place] [address] Lorenzo Cisneros MD Arrived Discharge Disposition: Home or Self Care (Routine Discharge) 10/12/2024 Orders Only [facility] [address] [place] [address] Lorenzo Cisneros MD 10/12/2024 Travel from Last 3 Months Immunizations Immunization Administration Dates Next Due Fluzone [...] Comments Blood Pressure 110/68 04/10/2017 4:09 PM CONTROL CLERK REPAIRS Pulse 83 04/10/2017 4:09 PM CONTROL CLERK REPAIRS Temperature - - Respiratory Rate - - [...] Screening 05/12/2022 05/12/2020, 9 COVID-19 Vaccine ( season) 2024 Lipid Panel 08/06/2024 08/07/2023, 11/02, 09/21/2021, Additional history exists Hemoglobin A1C 01/12/2025 10/12/2024, 01/02, 08/07/2023, Additional history exists RSV Immunization or 60+ [...] Procedure Name Priority Date/Time Associated Diagnosis Comments ECG 12-LEAD Routine 10/12/2024 3:47 PM CDT Preop examination HEMOGLOBIN, GLYCOSYLATED Routine 10/12/2024 3:32 PM CDT Pre-operative laboratory examination C-REACTIVE PROTEIN Routine 10/12/2024 3: 32 PM CDT Pre-operative laboratory examination COMPREHENSIVE METABOLIC PANEL Routine 10/12/2024 3:32 PM CDT Pre-operative laboratory examination CBC, AUTO, NO DIFF Routine 10/12/2024 3: 32 PM CDT Pre-operative laboratory examination LIPID PANEL Routine 08/07/2023 2:34 PM CONTROL CLERK REPAIRS Mixed hyperlipidemia Type II diabetes mellitus with hyperosmolarity, uncontrolled MG SCREENING W BYRON LORNA DIGI Routine 05/12/2020 3:03 PM CONTROL CLERK REPAIRS Visit for screening mammogram BONE DENSITY/DEXA Routine 04/09/2019 2:3 2 PM CONTROL CLERK REPAIRS Postmenopausal COLONOSCOPY Routine CONTROL CLERK REPAIRS from Last 3 Months or Most Recently Relevant to Health Maintenance Results * ECG 12 lead (10/12/2024 3:47 PM CDT) 10/12/2024 3:47 PM CDT Narrative [facility] ([facility]) RAD - 10/13/2024 4:20 PM CDT [facility] Test Date: 2024-10-12 Pat Name: YOUSIF JARQUIN Department: 85 Room: Gender: 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1955 Requested By: LORENZO CISNEROS Order Number: [id number] Reading : Tdaeo Chaves Measurements Intervals Maynard Rate: 71 P: -14 CA: 134 QRS: -31 QRSD: 90 T: 31 QT: 361 QTc: 393 Interpretive Statements SINUS RHYTHM LEFT AXIS DEVIATION [QRS AXIS < -30] Compared to ECG 10/20/2014 11:20:48 Left-axis deviation now present Myocardial infarct finding no longer present Procedure Note Tadeo Chaves MD - 10/13/2024 [facility] Test Date: 2024-10-12 Pat Name: YOUSIF JARQUIN Department: 85 Room: Gender: 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1955 Requested By: LORENZO CISNEROS Order Number: [id number] Reading : Tadeo Chaves Measurements Intervals Maynard Rate: 71 P: -14 CA: 134 QRS: -31 QRSD: 90 T: 31 QT: 361 QTc: 393 Interpretive Statements SINUS RHYTHM LEFT AXIS DEVIATION [QRS AXIS < -30] Compared to ECG 10/20/2014 11:20:48 Left-axis deviation now present Myocardial infarct finding no longer present us Lorenzo Cisneros MD ECG ORDERABLES Final Result [facility] ([facility]) RAD * (ABNORMAL) HEMOGLOBIN, GLYCOSYLATED (10/12/2024 3:32 PM CDT) HGB A1C 10.2(H) <5.7 % 10/12/2024 5:48 PM CDT [facility] Comment: INCREASED RISK OF DIABETES <5.7% NON-DIABETES 5.7-6.4% INCREASED RISK FOR FUTURE DIABETES > OR = 6.5 CONSISTENT WITH DIABETES STANDARDS OF MEDICAL CARE IN DIABETES-2010 DIABETES CARE, 33(SUPP 1): S1-S61,2009 ESTIMATED AVG GLUCOSE 246 mg/dL 10/12/2024 5:48 PM CDT [facility] 10/12/2024 3:32 PM CDT us Lorenzo Cisneros MD LABORATORY Final Result [facility] [address] [place] [address], * (ABNORMAL) COMPREHENSIVE METABOLIC PANEL (10/12/2024 3:32 PM CDT) GLUCOSE 260(H) 70 - 99 MG/DL 10/12/2024 4:35 PM CDT [facility] BUN 22(H) 7 - 18 MG/DL 10/12/2024 4:35 PM CDT [facility] CREATININE S/P/B 0.97 0.55 - 1.02 MG/DL 10/12/2024 4:35 PM CDT [facility] SODIUM S/P/B 135(L) 136 - 145 MMOL/L 10/12/2024 4:35 PM CDT [facility] POTASSIUM S/P/B 4.2 3.5 - 5.1 MMOL/L 10/12/2024 4:35 PM CDT [facility] CHLORIDE S/P/B 100 100 - 108 MMOL/L 10/12/2024 4:35 PM CDT [facility] CO2 29.3 21 - 32 MMOL/L 10/12/2024 4:35 PM CDT [facility] CALCIUM S/P/B 9.6 8.5 - 10.1 MG/DL 10/12/2024 4:35 PM CDT [facility] BILIRUBIN TOTAL S/P/B 0.4 0.2 - 1.2 MG/DL 10/12/2024 4:35 PM CDT [facility] TOTAL PROTEIN S/P/B 7.8 6.4 - 8.2 G/DL 10/12/2024 4:35 PM T [facility] ALBUMIN S/P/B 4.0 3.4 - 5.0 G/DL 10/12/2024 4:35 PM T [facility] AST 18 15 - 37 U/L 10/12/2024 4:35 PM T [facility] ALT 16 14 - 55 U/L 10/12/2024 4:35 PM T [facility] ALKALINE PHOSPHATASE S/P/B 104 50 - 136 U/L 10/12/2024 4:35 PM T [facility] ANION GAP 5.7 5 - 15 MMOL/L 10/12/2024 4:35 PM T [facility] BUN CREATININE RATIO 22.7 6 - 26 10/12/2024 4:35 PM T [facility] A/G RATIO 1.1 1.0 - 2.0 RATIO 10/12/2024 4:35 PM [facility] GFR ESTIMATE 62(L) >90 ML/MIN/1.7 3 M2 10/12/2024 4:35 PM T [facility] Comment: NOTE: eGFR is not calculated for patients <18 years of age. This is an estimated GFR calculation using the new CKD EPI creatinine equation without race and so does not require a correction factor for race. This estimated GFR should not be used for calculating drug doses. 10/12/2024 3:32 PM CDT us Lorenzo Cisneros MD LABORATORY Final Result [facility] [address] [place] [address], [place] [phone] * (ABNORMAL) C-REACTIVE PROTEIN (10/12/2024 3:32 PM CDT) Pathologist [facility] C-REACTIVE PROTEIN 1.42(H) <0.29 mg/dL 10/12/2024 8:03 PM CDT [facility] 10/12/2024 3:32 PM CDT Lorenzo Cisneros MD LABORATORY Final Result [facility] [address] [place] [address], * (ABNORMAL) CBC, AUTO, NO DIFF (10/12/2024 3:32 PM CDT) Pathologist [facility] WBC 7.92 4.4 - 11.0 x10'3/uL 10/12/2024 3:55 PM CDT [facility] RBC 4.11(L) 4.50 - 5.10 x10'6/uL 10/12/2024 3:55 PM CDT [facility] HGB 12.3 12.3 - 15.3 G/DL 10/12/2024 3:55 PM CDT [facility] HCT 37.6 35.9 - 44.6 % 10/12/2024 3:55 PM CDT [facility] MCV 91.5 80.0 - 96.0 FL 10/12/2024 3:55 PM CDT [facility] MCH 29.9 25.3 - 30.9 PG 10/12/2024 3:55 PM CDT [facility] MCHC 32.7 31.0 - 34.1 G/DL 10/12/2024 3:55 PM CDT [facility] RDW 12.2(L) 12.4 - 15.1 % 10/12/2024 3:55 PM CDT [facility] PLT 215 151 - 353 x10'3/uL 10/12/2024 3:55 PM CDT [facility] MPV 11.4 9.6 - 12.0 FL 10/12/2024 3:55 PM CDT [facility] 10/12/2024 3:32 PM CDT us Lorenzo Cisneros MD LABORATORY Final Result [facility] [address] [place] [address], * LIPID PANEL (08/07/2023 2:34 PM CONTROL CLERK REPAIRS) CHOLESTEROL 181 <200 MG/DL 08/07/2023 3:27 PM [facility] TRIGLYCERIDES 87 <150 MG/DL 08/07/2023 3:27 PM [facility] HDL 69 >40.0 MG/DL 08/07/2023 3:27 PM [facility] LDL (CALCULATED) 95 <100 MG/DL 08/07/19 3:27 PM [facility] NON HDL CHOLESTEROL 112 <130 MG/DL 08/06 3:27 PM [facility] Comment: NOTE: WHEN THE TRIGLYCERIDES ARE >200 mg/dL, NON HDL C IS A SECONDARY TARGET OF THERAPY, WITH A GOAL 30 mg/dL HIGHER THAN THE IDENTIFIED LDL C GOAL. CHOL/HDL RATIO 2.6 0.0 - 4.5 08/07/2023 3:27 PM [facility] VLDL CALCULATION 17 5 - 55 MG/DL 08/07/2023 3:27 PM [facility] LIPID INTERPRETATION 08/07/2023 3:27 PM [address] [facility] Comment: [facility] CONCENSUS REPORT RECOMMENDATIONS: ADULT CHILD LOW RISK: CHOLESTEROL <200 <170 TRIGLYCERIDE <150 --- HDL >=60 --- LDL <100 <110 BORDERLINE: CHOLESTEROL 200-239 170-199 TRIGLYCERIDE 150-199 --- HDL 40-59 --- LDL 100-159 110-129 HIGH RISK: CHOLESTEROL >=240 >=200 TRIGLYCERIDE >=200 --- HDL <40 --- LDL >=160 >=130 08/07/2023 2:34 PM CONTROL CLERK REPAIRS us Coretta Crowley RECORD FILING CLERK LABORATORY Final Re sult [facility] [address] [place] [address], [place] [phone] * MG SCREENING W BYRON LORNA DIGI (05/12/2020 3:03 PM CONTROL CLERK REPAIRS) Anatomical Region Laterality Modality Breast Bilateral Mammography 05/12/2020 4:33 PM CONTROL CLERK REPAIRS Narrative 05/12/2020 4:33 PM CONTROL CLERK REPAIRS EXAMINATION: MG SCREENING W BYRON LORNA DIGI [...] Interpreted By: Guilherme Albright, 05/12/2020 4:33 PM Yasmin Tierney MD MAMMO Final Result * BONE DENSITY/DEXA (04/09/2019 2:32 PM CONTROL CLERK REPAIRS) Anatomical Region Laterality Modality Bone Bone Density 04/09/2019 3:21 PM CONTROL CLERK REPAIRS Impressions 04/09/2019 3:22 PM CONTROL CLERK REPAIRS IMPRESSION: WHO Classification: normal. FRAX Score: No score calculated as all T score values are within normal limits. Interpreted By: Alexander Hernández, 04/09/2019 3:21 PM Narrative 04/09/2019 3:22 PM CONTROL CLERK REPAIRS Examination: Bone Density Axial Exam Date/Time: 04/09/2019 [...] MD DEXA Final Result * Colonoscopy ( CONTROL CLERK REPAIRS) Narrative [facility] TO EPIC CONVERSION - CONTROL CLERK REPAIRS Documented hx of procedure Procedure Note Cindi Lee MD - 04/06/2018 Documented hx of procedure us Cindi Bro Md, MD GI PROCEDURE ORDERABLES Final Result [facility] TO EPIC CONVERSION from Last 3 Months or Most Recently Relevant to Health Maintenance Insurance [employer] [employer] [facility] Care Teams Supervisor Electronics Assembly Relationship Specialty Start Date End Date Carolann oFurnier MD [facility] [place] [address] PCP - General FAMILY PRACTICE 03/13/19
[2024-10-15 08:19] LABS: Glucose Point of Care 224 mg/dl (65-105)
[2024-10-15] MEDS: KETOROLAC 15 MG/ML VIAL (*BKC) IV PUSH ×2 (08:30→15:25)
[2024-10-15] MEDS: ACETAMINOPHEN 500 MG TABLET 1000 MG PO (08:30)
[2024-10-15] MEDS: LACTATED RINGERS 1,000 ML 30 ML IV CONT ×2 (08:37→12:42)
--- NOTE | 2024-10-15 09:37 | WPDANESEPPF ---
Anes - Initial Pre Proc Eval Procedure: Operation Date: 10/15/24 10:00 Proposed Procedures p Open Reduction Internal Fixation Left Distal Radius - Lorenzo Cisneros MD Date/Time: 10/15/24 09:37 Surgeon: Lorenzo Cisneros MD Pre Op Diagnosis: Left Wrist Fx Patient Data Age: 69 Gender: F Height: 1.63 m Weight: 75 kg Last Vital Signs Temp 36.6 C 10/15/24 08:00 Pulse 75 10/15/24 08:00 Resp 16 10/15/24 08:00 BP 146/71 H 10/15/24 08:00 Pulse Ox 98 10/15/24 08:00 Allergies Allergy/AdvReac Type Severity Reaction Status Date / Time No Known Allergies Allergy Verified 10/13/24 13:30 Home Medications Medication Instructions Recorded Confirmed Type hydrocodone 5 mg-acetaminophen 325 1 tablet PO Q6H PRN pain #14 tabs 10/08/24 10/13/24 Rx mg tablet atorvastatin 10 mg tablet 10 mg PO DAILY 10/13/24 10/13/24 History glipizide 10 mg tablet, extended 10 mg PO QAM 10/13/24 10/13/24 History release 24 hr ondansetron 4 mg disintegrating 4 mg PO Q8H PRN nausea and vomiting 10/13/24 10/13/24 History tablet semaglutide 7 mg tablet (Rybelsus) 3.5 mg PO DAILY 10/13/24 10/13/24 History Laboratory Tests 10/15/24 08:12 POC Capillary Glucose 224 H mg/dl (65-105) Patient hx anesthesia problems: none Family hx anesthesia problems: none Results Review: All pre-operative results and documents have been reviewed as part of the pre-operative evaluation. [facility] Past Medical History Medical History (Updated 10/15/24 @ 09:38 by Kevin Calloway MD) Hyperlipidemia Diabetes Social History Social History Smoking packs per day: 0.2 Smoking cigarettes per day: 4.0 Years smoked: 5 Smoking pack-years: 1.00 Smoking status: Former smoker Tobacco type: cigarettes Smoking end date: 12/01/14 Alcohol intake: current Living arrangements: alone Additional living arrangements comments: HUSB Spiritual care concerns: No Anes - Eval Final PreProcedure Day of Procedure 10/15/24 09:37 Patient weight: overweight Heart: regular rate and rhythm Lungs: clear to auscultation Airway: Mallampati scale class II Neurological: alert and oriented Last oral intake: >/= 8 hours ASA classification: III Emergent: no Anesthetic plan: proceed Anesthesia type and monitoring: general LMA and standard monitoring Results Review: All pre-operative results and documents have been reviewed as part of the pre-operative evaluation. Informed Consent: The patient's anesthetic plan and its attendant risks and benefits were discussed with the patient/family/POA. Questions were solicited and answers provided to the satisfaction of the patient/family/POA.
--- NOTE | 2024-10-15 10:28 | WPDHPUPDATE1 ---
History and Physical Update Update Date/Time: 10/15/24 10:28 History and Physical has been reviewed, including an updated exam of the patient. There are NO changes in the patient's condition. Risks, benefits, and alternatives have been discussed and questions answered. Patient agrees to proceed with procedure. The procedure is open reduction with internal plate and screw fixation with possible external fixation of the Left Distal Radius fracture
--- NOTE | 2024-10-15 10:32 | PM.IMHP ---
H&P: HPI History of Present Illness Date/Time: 10/15/24 10:32 Chief Complaint: Left distal radius fracture PMFSH Past Medical History Medical History (Updated 10/15/24 @ 10:34 by Lorenzo Cisneros MD) Hyperlipidemia Diabetes Social History Social History Smoking packs per day: 0.2 Smoking cigarettes per day: 4.0 Years smoked: 5 Smoking pack-years: 1.00 Smoking status: Former smoker Tobacco type: cigarettes Smoking end date: 12/01/14 Alcohol intake: current Living arrangements: alone Additional living arrangements comments: HUSB Spiritual care concerns: No Meds Home Medications and Allergies Home Medications Medication Instructions Recorded Confirmed Type hydrocodone 5 mg-acetaminophen 325 1 tablet PO Q6H PRN pain #14 tabs 10/08/24 10/13/24 Rx mg tablet atorvastatin 10 mg tablet 10 mg PO DAILY 10/13/24 10/13/24 History glipizide 10 mg tablet, extended 10 mg PO QAM 10/13/24 10/13/24 History release 24 hr ondansetron 4 mg disintegrating 4 mg PO Q8H PRN nausea and vomiting 10/13/24 10/13/24 History tablet semaglutide 7 mg tablet (Rybelsus) 3.5 mg PO DAILY 10/13/24 10/13/24 History Allergies Allergy/AdvReac Type Severity Reaction Status Date / Time No Known Allergies Allergy Verified 10/13/24 13:30 Vital Signs Vital Signs - 24 hr 10/15/24 08:00 Temperature 36.6 C Pulse Rate 75 Respiratory Rate 16 Blood Pressure 146/71 H Pulse Oximetry 98 Exam Narrative: Left upper extremity in splint, with good cap refill and intact sensation Assessment and Plan Assessment and plan (1) Fracture of left distal radius: Code(s): S52.502A - Unspecified fracture of the lower end of left radius, initial encounter for closed fracture Status: Acute Plan 69 yr old female with Left distal radius fracture. unstable displaced, open reduction, internal fixation possible extermal fixation - risks discussed with patient - patient agrees to proceed.
[2024-10-15] MEDS: ceFAZolin 2 GM/D5W 50 ML 2 GM/50 ML BAG IVPB (10:40)
[2024-10-15] MEDS: LIDO 1%/EPINEPHRINE 1:100,000 20 ML VIAL INFILTRATE (11:28)
[2024-10-15 12:59] LABS: Glucose Point of Care 162 mg/dl (65-105)
[2024-10-15] MEDS: fentaNYL CITRATE INJ (*CRX) 100 MCG/2 ML VIAL 25 MCG IV PUSH ×8 (13:00→13:55)
--- NOTE | 2024-10-15 13:01 | P.OP_ITS ---
Procedure Note - Detailed Date of Procedure 10/15/24 Pre-op Diagnosis Left Distal Radius fracture greater than 4 parts Post-op Diagnosis Same Procedure Performed Open reduction internal fixation of greater than 4 part distal radius fracture with Acumed Volar Plate Surgeon Lorenzo Cisneros MD Anesthesia General Indications 69 yr old female with unstable displaced distal radius fracture after a fall. Findings Comminuted intra-articular distal radius fracture with displacement greater than 4 parts. Description of Procedure After obtaining consent with regard to the risks benefits alternatives and complications of a left distal radius fracture open reduction internal fixation possible external fixation patient was then brought to the operative patient was placed in the supine position and underwent general anesthesia. Left upper extremity was then prepped and draped in standard sterile fashion. Tourniquet was not used for this procedure. After time-out was performed to verify correct patient correct site of surgery as well as administration of 2 g of IV intravenous within 1 hour of incision time, a volar incision was made dissection was carried down at the distal radius fracture was easily identified the interval between the FCR and radial artery was exposed. All attempts were made to avoid the median nerve as well as radial artery. Identified the fracture site. We used fluoroscopy to obtain radial height radial inclination. Traction was placed manually in order to obtain radial height as well as radial inclination. After this was done, I placed a retrograde guidewire from the radial styloid into the radial shaft to secure the fracture in optimal position. The after this was done I then proceeded to place a volar plate of appropriate size and length. I 1st placed a cortical screw in the shaft of the radius. I then used AP and lateral views to verify correct positioning of the plate. Proximal distal position was also adjusted. After this was done I then proceeded to place multiple locking pegs distally over the distal fragment and used lateral views to verify indeed that all of the pegs were not violating the dorsal cortex. After this was done I then proceeded to obtain additional traction by loosening the screw that was initially placed in the oval oblong hole. I then proceeded to tighten this down after pinning approximately 3 mm of additional traction. I then proceeded to place multiple screws into the shaft these were cortical screws. I removed the guidewire that was initially placed over the proximal aspect of the plate. I then irrigated copiously and then obtained AP and lateral views to verify radial height radial inclination as well as appropriate reduction intra-articular. After this was done I then decided to keep the K-wire in that was in the retrograde position over the radial styloid for additional fixation. This will be removed my clinic in about 7-10 days. It then again irrigated the incision site copiously injected with lidocaine with epinephrine and closed the skin using dermal 2-0 Vicryl suture as well as Steri-Strips. The wrist was then bandaged in a sterile fashion placed in a volar splint and she was transferred to the recovery room stable condition. The patient will be followed up in 7-10 days The patient and her were instructed to make sure that she elevated and iced her left wrist over the next 3-4 days. Patient was provided a sling in my office. Patient has a prescription for [place] that was given turn my office. Estimated Blood Loss 50 Tourniquet Time Total Tourniquet Time: 0 Complications No immediate complications Condition Stable Disposition PACU
[2024-10-15] MEDS: oxyCODONE HCL (*CRX) 5 MG TAB IR PO (14:07)
--- NOTE | 2024-10-15 15:26 | SUR.PHASEII ---
DR STACY CALLED RE: LEFT FOREARM PAIN 02/10; TORADOL GIVEN.
--- NOTE | 2024-10-15 16:46 | SUR.PHASEII ---
1547 DR. PARTIDA CALLED TO REPORT PATIENT'S PERSISTENT LEFT WRIST PAIN 01/10. DR. PARTIDA OKAY'D PATIENT TO GO HOME.
== END 2024-10-15 16:05 | disposition home or self-care (01) ==
PROVIDERS: PCP Family Medicine; Visit Provider Orthopaedic Surgery
PROC: (CPT 25609; principal; 2024-10-15 10:00)
DX: S52.572A Other intraarticular fracture of lower end of left radius, initial encounter for closed fracture (principal); E78.5 Hyperlipidemia, unspecified; E11.9 Type 2 diabetes mellitus without complications; W19.XXXA Unspecified fall, initial encounter; Z79.891 Long term (current) use of opiate analgesic; Z79.84 Long term (current) use of oral hypoglycemic drugs; Z87.891 Personal history of nicotine dependence
CPT/HCPCS: 25609; 82948; 99199; A9270; C1713; J0690; J1100; J1171; J1885; J2003; J2004; J2405; J2704; J3010; J7120